=== PATIENT | female | born 1955 | race Caucasian/White ===

== ENCOUNTER → 2016-07-21 | Outpatient (CLI) | payer BC ==
[~2016-07-21] MED LIST: ALEVE220 M1; COLESTID PO; LEXAPRO PO; LORTAB 5/500 TA1 TA1 PO; NAPROXEN PO; VIT D; VOLTAREN50 MG PO
--- NOTE | ~2016-07-21 | MY11 ---
[facility] A Service [facility] RADIOLOGY TEXT RESULTS PATIENT: GRICEL SMALL LOCATION: [facility] : 53 UNIT #: [id number] AGE: [address]: Katina Douglas APRN SEX: F ORDER DR: [id number] [address] [id number] O MR#: [id number] Acc #: [id number] NAME: GRICEL SMALL : 1955 SEX: F STUDY DATE/TIME: 07/21/2016 14:32 UNIT: [facility] ROOM: STUDY DESCRIPTION: MY Mammogram Screening Dig Gustavo Attending Physician: Katina Douglas A.P.R.N. Referring Physician: Katina Douglas A.P.R.N. Ordering Physician: Katina Douglas A.P.R.N. Primary Care Physician: Katina Douglas A.P.R.N. MEDICAL IMAGING REPORT This report is preliminary unless electronic signature is present. EXAM Bilateral digital screening mammogram with CAD DATE 07/21/2016 HISTORY No personal or family history of breast cancer or current complaints. COMPARISON No prior examinations are available for comparison. The patient is unsure where or when she had previous screening mammograms performed. Therefore, the current study serves as the patient's new baseline exam. FINDINGS CC and MLO views were obtained of each breast utilizing digital technique and reviewed with an FDA-approved CAD device. Scattered fibroglandular densities are present bilaterally. No focal suspicious nodule, architectural distortion or clustered microcalcification is identified. IMPRESSION BIRADS category 1. Negative screening mammogram. Routine screening mammogram is recommended in 1 year. Patients over the age of 40 are entered into a reminder system with target due date for the next mammogram. A result letter will also be sent to the patient. BIRADS: 1 - Negative Dictated by... Gege Alvares M.D. [facility] A Service [facility] RADIOLOGY TEXT RESULTS PATIENT: GRICEL SMALL LOCATION: [facility] : 53 UNIT #: [id number] AGE: [address]: Katina Douglas APRN SEX: F ORDER DR: THIS IS AN ELECTRONICALLY VERIFIED REPORT Gege Alvares M.D. at 07/22/2016 7:08 AM Amarjit TD: 07/21/2016 17:41 JOB #: [id number] MEDICAL IMAGING REPORT Page 1 of 1
== END | disposition home or self-care (01) ==
LOC: SMAM 13:58
DX: Z12.31 Encounter for screening mammogram for malignant neoplasm of breast (principal)
CPT/HCPCS: G0202